=== PATIENT | male | born 1995 | race Caucasian/White ===

== ENCOUNTER 2024-08-02 14:11 | Emergency (ER) | payer MEDICAID, OTHER ==
[~2024-08-02] VITALS: Ht 157.5 cm; Wt 90.0 kg
[2024-08-02 14:16] VITALS: BP 162/84; PULSE 104; RESP 18; TEMP 98.2; O2SAT 99
[2024-08-02 15:06] LABS: BASOPHILS % 0.9 % (0.0-2.0); EOSINOPHILS % 1.2 % (0.0-5.0); HEMATOCRIT. 41.5 % (42.0-52.0); HEMOGLOBIN. 14.2 g/dL (14.0-18.0); LYMPHOCYTES % 18.9 % (20.0-50.0); MEAN CORPUSCULAR HGB CONC 34.1 g/dL (31.0-37.0); MEAN PLATELET VOLUME 8.7 fl (7.4-10.4); MONOCYTES % 7.3 % (2.0-8.0); NEUTROPHILS % 71.7 % (40.0-76.0); PLATELET 145 x1000/uL (130-400); RED BLOOD CELL COUNT 4.57 mill/uL (4.7-6.1); RED CELL DISTRIBUTION WIDTH 14.3 % (11.6-14.6); WHITE BLOOD COUNT 8.7 x1000/uL (4.5-11.0)
[2024-08-02 15:08] LABS: CHLORIDE 106 mEq/L (98-107); POTASSIUM 3.4 mEq/L (3.5-5.1); SODIUM 140 mEq/L (136-145)
[2024-08-02 15:09] LABS: CALCIUM 9.6 mg/dL (8.7-10.4); CARBON DIOXIDE 25 mEq/L (21-32)
[2024-08-02 15:14] LABS: CREATININE 0.7 mg/dL (0.6-1.3); GLUCOSE 119 mg/dL (70-105); UREA NITROGEN BLOOD 7 mg/dL (9-23)
[2024-08-02 15:43] LABS: TROPONIN I HIGH SENSITIVITY 79 ng/L (3.0-53)
[2024-08-02] MEDS ORDERED: ASPIRIN 325MG EC TABLET PO ONE (16:45)
== END 2024-08-02 21:44 | disposition left against medical advice (07) ==
LOC: ER 15:31 → EDBEDREQ 16:30 → CANBEDREQ 21:29 → ER 21:44
DX: I21.4 Non-ST elevation (NSTEMI) myocardial infarction (principal)
CPT/HCPCS: 36415; 71045; 80048; 84484; 85025; 85379; 93005; 99291